=== PATIENT | female | born 1995 | race African-American/Black ===

== ENCOUNTER 2023-03-10 11:03 | Outpatient (CLI) | payer OTHER, SELFPAY | END 2023-03-10 11:04 | disposition home or self-care (01) | PROVIDERS: PCP Family Medicine; Visit Provider Family Medicine | DX: Z00.00 Encounter for general adult medical examination without abnormal findings (principal); B35.4 Tinea corporis; Z13.6 Encounter for screening for cardiovascular disorders; Z13.29 Encounter for screening for other suspected endocrine disorder | CPT/HCPCS: 80048; 80061; 84443; 85025 ==

== ENCOUNTER 2025-01-22 09:01 | Outpatient (CLI) | payer OTHER, SELFPAY | END 2025-01-22 09:02 | disposition home or self-care (01) | PROVIDERS: PCP Family Medicine; Visit Provider Family Medicine | DX: Z00.00 Encounter for general adult medical examination without abnormal findings (principal); R07.89 Other chest pain; G47.00 Insomnia, unspecified; Z13.6 Encounter for screening for cardiovascular disorders | CPT/HCPCS: 80048; 80061; 84460; 85025 ==

== ENCOUNTER 2025-01-29 14:12 | Outpatient (CLI) | payer OTHER, SELFPAY ==
[2025-02-01 05:28] LABS: HPV Source Cervix
== END 2025-01-29 14:13 | disposition home or self-care (01) ==
PROVIDERS: PCP Family Medicine; Visit Provider Physician Assistant
DX: L68.0 Hirsutism (principal); Z12.4 Encounter for screening for malignant neoplasm of cervix; Z11.51 Encounter for screening for human papillomavirus (HPV)
CPT/HCPCS: 84270; 84402; 84403; 87624; 87625; 88141; 88142